=== PATIENT | female | born 1960 | race Hispanic/Latino ===

== ENCOUNTER 2024-06-02 15:19 | Emergency (ER) | payer OTHER ==
[~2024-06-02] VITALS: Ht 165.1 cm; Wt 68.9 kg
[2024-06-02 16:23] VITALS: TEMP 98.4
[2024-06-02] MEDS ORDERED: ASPIRIN 81 MG CHEW TAB PO ONE (16:30)
[2024-06-02 16:54] LABS: BASOPHILS # (AUTO) 0.1 (0.0-0.1); BASOPHILS % 1.4 % (0.0-1.0); EOSINOPHILS # (AUTO) 0.2 (0.0-0.4); EOSINOPHILS % 2.3 % (0.0-6.0); HEMATOCRIT 36.7 % (34.2-44.1); HEMOGLOBIN 11.7 g/dL (12.0-16.0); LYMPHOCYTES # (AUTO) 1.8 (1.0-3.2); LYMPHOCYTES % 25.3 % (18.0-39.1); MEAN CORPUSCULAR HEMOGLOBIN 28.8 pg (28-32); MEAN CORPUSCULAR HGB CONC 31.9 g/dL (31-35); MEAN CORPUSCULAR VOLUME 90.4 fL (81-99); MONOCYTES # (AUTO) 0.5 (0.2-0.8); MONOCYTES % 7.4 % (4.4-11.3); NEUTROPHILS # (AUTO) 4.4 (2.1-6.9); NEUTROPHILS % 63.2 % (38.7-80.0); PLATELET COUNT 268 x10e3/uL (140-360); RED BLOOD COUNT 4.06 x10e6/uL (3.6-5.1); RED CELL DISTRIBUTION WIDTH 14.3 % (11.7-14.4); WHITE BLOOD COUNT 6.92 x10e3/uL (4.8-10.8)
[2024-06-02 17:10] LABS: ALANINE AMINOTRANSFERASE 17 IU/L (0-55); ALBUMIN 3.4 g/dL (3.5-5.0); ALKALINE PHOSPHATASE 95 IU/L (40-150); ANION GAP 15.2 mmol/L (8-16); BILIRUBIN,TOTAL 0.2 mg/dL (0.2-1.2); BLOOD UREA NITROGEN 14 mg/dL (7-26); BUN/CREATININE RATIO 20 (6-25); CARBON DIOXIDE 21 mmol/L (22-29); CHLORIDE 110 mmol/L (98-107); CREATINE KINASE 58 IU/L (29-168); EST GLOMERULAR FILTRATION RATE 97 ML/MIN (>=60); GLUCOSE 184 mg/dL (74-118); POTASSIUM 4.2 mmol/L (3.5-5.1); SODIUM 142 mmol/L (136-145); TOTAL PROTEIN 6.8 g/dL (6.5-8.1)
[2024-06-02 17:17] LABS: TROPONIN I < 0.001 ng/mL (0-0.300)
[2024-06-02 18:30] VITALS: PULSE 78; RESP 15
[2024-06-02 18:59] VITALS: BP 145/85; PULSE 79; RESP 16; O2SAT 98
== END 2024-06-02 19:03 | disposition home or self-care (01) ==
LOC: ER 15:52
DX: M54.12 Radiculopathy, cervical region (principal); G62.9 Polyneuropathy, unspecified; M48.02 Spinal stenosis, cervical region; Z98.1 Arthrodesis status; I44.4 Left anterior fascicular block
CPT/HCPCS: 36415; 72125; 80053; 82550; 84484; 85025; 93005; 99283

== ENCOUNTER 2025-08-07 20:24 | Emergency (ER) | payer SELFPAY ==
[~2025-08-07] VITALS: Ht 160 cm; Wt 68.0 kg
[2025-08-07 20:25] VITALS: PULSE 90; RESP 20; TEMP 98.1
[2025-08-07] MEDS: KETOROLAC TROMETHAMINE 60 MG/2 ML VIAL IM ONE (21:07)
[2025-08-07] MEDS ORDERED: ULTRAM 50MG50 MG PO (21:26)
[2025-08-07 22:30] VITALS: BP 129/64; PULSE 73; RESP 18; TEMP 98.3; O2SAT 98
== END 2025-08-07 21:32 | disposition home or self-care (01) ==
LOC: ER 20:30
DX: M54.50 Low back pain, unspecified (principal); I10 Essential (primary) hypertension; E11.40 Type 2 diabetes mellitus with diabetic neuropathy, unspecified
CPT/HCPCS: 72100; 99284; J1885